=== PATIENT | female | born 1960 | race Caucasian/White ===

== ENCOUNTER 2022-07-02 08:37 | Outpatient (CLI) | payer OTHER ==
[2022-07-02] MEDS ORDERED: Iopamidol 370 76% 100 ML VIAL ONE (10:20)
== END 2022-07-02 08:38 | disposition home or self-care (01) ==
LOC: CT 08:37
PROVIDERS: ATTEND Urology
DX: C64.2 Malignant neoplasm of left kidney, except renal pelvis (principal); N28.89 Other specified disorders of kidney and ureter
CPT/HCPCS: 71260; 74178; 78306; 82565; A9503

== ENCOUNTER 2022-10-23 12:19 | Outpatient (CLI) | payer OTHER ==
[2022-10-23 13:38] LABS: Hematocrit 41.6 % (34.9-44.5); Hemoglobin 13.7 g/dL (12.0-15.5); Mean Corpuscular HGB CONC 32.9 g/dL (32.0-36.0); Mean Corpuscular Hemoglobin 28.5 pg (27.0-33.0); Mean Corpuscular Volume 86.5 fl (81.6-98.3); Mean Platelet Volume 9.7 fl (7.4-10.4); Platelet Count 251 10x3/uL (150-450); RBC Distribution Width 11.9 % (11.5-14.5); Red Blood Cell (RBC) Count 4.81 10x6/uL (3.90-5.03); White Blood Cell (WBC) Count 7.4 10x3/uL (3.5-10.5)
[2022-10-23 13:41] LABS: PTT 26.9 sec (22.0-33.0); Prothrombin Time 10.3 sec (9.5-12.1)
[2022-10-23 13:44] LABS: Anion Gap 15 mmol/L (10-20); BUN (Urea Nitrogen) 14 mg/dL (9.8-20.1); Calc. Creatinine Clearance 0 mL/min (70-130); Calcium 10.1 mg/dL (7.8-10.44); Carbon Dioxide 26 mmol/L (22-29); Chloride 104 mmol/L (98-107); Estimated GFR 84; Glucose 94 mg/dL (70-105); Sodium 141 mmol/L (136-145)
[2022-10-23 13:57] LABS: Bilirubin Neg (Negative); Blood, Urine Negative (Negative); Clarity Clear (Clear); Glucose, Urine (Dipstick) Normal (Negative); Ketone, Urine Negative (Negative); Leukocyte Negative (Negative); Nitrite Negative (Negative); Protein, Urine (Dipstick) Negative (Neg-Trace); Urobilinogen Normal mg/dL (Less than 2)
[2022-10-23 14:12] LABS: RBC/HPF None Seen HPF (0-3); Squamous Epithelial 0-3 HPF (0-3); WBC/HPF None Seen HPF (0-3)
[2022-10-23 14:13] LABS: Bacteria/HPF None Seen HPF (None Seen)
== END 2022-10-23 12:20 | disposition home or self-care (01) ==
LOC: LABBT 12:19
PROVIDERS: ATTEND Urology
DX: Z01.818 Encounter for other preprocedural examination (principal); N28.89 Other specified disorders of kidney and ureter; E66.01 Morbid (severe) obesity due to excess calories; R91.1 Solitary pulmonary nodule; Z68.41 Body mass index [BMI] 40.0-44.9, adult
CPT/HCPCS: 71046; 80048; 81001; 85027; 85610; 85730; 87086; 93005; 93010

== ENCOUNTER 2022-10-23 12:30 | Inpatient (IN) | payer OTHER ==
[2022-11-05] MEDS ORDERED: Fentanyl 250 MCG/5 ML VIAL ONE (06:42)
[2022-11-05] MEDS ORDERED: Midazolam HCl 2 mg/2 ml Vial ONE ×2 (06:43→07:01)
[2022-11-05] MEDS ORDERED: fentaNYL 50 mcg/mL 1 mL Vial ONE ×2 (07:01→09:45)
[2022-11-05] MEDS ORDERED: Bacitracin Zinc Ointment 30 gm TUBE ONE (07:13)
[2022-11-05] MEDS ORDERED: Sodium Chloride 0.9% 100 ML ONE (07:32)
[2022-11-05] MEDS ORDERED: CEFAZOLIN 2 GM VIAL ONE (07:32)
[2022-11-05] MEDS ORDERED: Naloxone HCl 0.4 mg/ml Vial IVP PRN (07:45)
[2022-11-05] MEDS ORDERED: Promethazine HCl 25 MG/ML VIAL IM PRN (07:45)
[2022-11-05] MEDS ORDERED: diphenhydrAMINE 25 MG CAP PO PRN (07:45)
[2022-11-05] MEDS ORDERED: HYDROcodone/Acetaminophen 5/325 mg Tablet PO PRN ×2 (07:45)
[2022-11-05] MEDS ORDERED: Promethazine HCl 25 MG SUPP PR PRN (07:45)
[2022-11-05] MEDS ORDERED: Moisturizing Cream (Eucerin) 113 GM JAR TOP PRN (07:45)
[2022-11-05] MEDS ORDERED: traMADol HCl 50 MG TAB PO PRN ×2 (07:45)
[2022-11-05] MEDS ORDERED: Ondansetron PF 4 MG/2 ML Vial IVP PRN (07:45)
[2022-11-05] MEDS ORDERED: diphenhydrAMINE 50 MG/ML VIAL IM PRN (07:45)
[2022-11-05] MEDS ORDERED: Bupivacaine 0.25% 10 ML VIAL EPIDURAL PRN (07:45)
[2022-11-05] MEDS ORDERED: Naloxone HCl 0.4 mg/ml Vial IV PRN (07:45)
[2022-11-05] MEDS ORDERED: diphenhydrAMINE 50 MG/ML VIAL IVP PRN (07:45)
[2022-11-05] MEDS ORDERED: Labetalol HCl 100 MG/20 ML VIAL ONE (07:48)
[2022-11-05] MEDS ORDERED: Rocuronium Bromide 10 MG/ML (10ML VIAL) ONE (07:48)
[2022-11-05] MEDS ORDERED: PROPOFOL 200 MG/20 ML VIAL ONE (07:48)
[2022-11-05] MEDS ORDERED: Ondansetron PF 4 MG/2 ML Vial ONE (07:48)
[2022-11-05] MEDS ORDERED: Dexamethasone 20 MG/5 ML VIAL ONE (07:48)
[2022-11-05] MEDS ORDERED: Bupivacaine 0.25% HCL 30 ML VIAL ONE (09:45)
[2022-11-05] MEDS ORDERED: Bisacodyl 10 MG SUPP PR PRN (11:28)
[2022-11-05] MEDS ORDERED: Mag-Al 1200 mg/1200 mg/30 ML UDCUP PO PRN (11:28)
[2022-11-05] MEDS ORDERED: Oxybutynin 5 MG TAB PO PRN (11:28)
[2022-11-05] MEDS ORDERED: hydrALAZINE 20 MG/ML VIAL SLOW IVP PRN (11:28)
[2022-11-05] MEDS: Sodium Chloride 0.9% 1,000 ML IV SCH ×2 (12:36→21:24)
[2022-11-05 13:41] LABS: Hematocrit 34.6 % (36.0-47.0); Hemoglobin 11.4 g/dL (12.0-16.0); Mean Corpuscular HGB CONC 32.9 g/dL (32.0-36.0); Mean Corpuscular Hemoglobin 29.2 pg (27.0-31.0); Mean Corpuscular Volume 88.7 fl (78.0-98.0); Mean Platelet Volume 9.8 fL (7.4-10.4); Platelet Count 179 10x3/uL (130-400); RBC Distribution Width 12.5 % (11.5-14.5); White Blood Cell (WBC) Count 11.5 10x3/uL (4.8-10.8)
[2022-11-05 13:48] LABS: Anion Gap 9 mmol/L (10-20); BUN (Urea Nitrogen) 12 mg/dL (9.8-20.1); Calc. Creatinine Clearance 167 mL/min (70-130); Calcium 8.6 mg/dL (7.8-10.44); Carbon Dioxide 23 mmol/L (22-29); Chloride 109 mmol/L (98-107); Estimated GFR 100; Glucose 177 mg/dL (70-105); Potassium 3.7 mmol/L (3.5-5.1); Sodium 137 mmol/L (136-145)
[2022-11-05 14:42] VITALS: BMI 43.0
[2022-11-05] MEDS ORDERED: Electrolyte Replacement Protocol 1 EACH FS SCH (15:45)
[2022-11-05 16:23] LABS: Actual Bicarbonate (HCO3v) 23.2 mEq/L (22-28); Base Excess -2.6 mEq/L (-2.0 to +3.0); Calcium, Ionized (venous) 1.06 mmol/L (1.16-1.32); Chloride (VBG) 105 mmol/L (98-106); Hematocrit-VBG 39 % (36.0-47.0); Hemoglobin (Hb) 13.3 g/dL (11.7-16.0); Potassium (VBG) 3.97 mmol/L (3.70-5.30); Sodium 138.8 mmol/L (133-146); pH (venous) 7.342 (7.32-7.43)
[2022-11-05] MEDS: CEFAZOLIN 1 GM in Sodium Chloride 0.9% 100 ML IVPB SCH (17:29)
[2022-11-05] MEDS: Docusate 100 MG CAP PO SCH (21:20)
[2022-11-06] MEDS: CEFAZOLIN 1 GM in Sodium Chloride 0.9% 100 ML IVPB SCH ×2 (00:35→09:15)
[2022-11-06] MEDS: Fentanyl/Bupivacaine 100 ML EPIDURAL SCH ×2 (03:53→17:50)
[2022-11-06 05:24] LABS: #Monocytes 0.7 thou/uL (0.11-0.59); #Neutrophils 7.4 thou/uL (1.40-6.50); %Basophils 0.1 % (0.0-1.0); %Monocytes 7.9 % (0.0-10.0); %Neutrophils 79.8 % (42.0-75.0); Hematocrit 30.3 % (36.0-47.0); Mean Corpuscular Hemoglobin 29.2 pg (27.0-31.0); Mean Corpuscular Volume 88.3 fl (78.0-98.0); Mean Platelet Volume 9.4 fL (7.4-10.4); Platelet Count 167 10x3/uL (130-400); RBC Distribution Width 12.7 % (11.5-14.5); Red Blood Cell (RBC) Count 3.43 mill/uL (4.20-5.40); White Blood Cell (WBC) Count 9.2 10x3/uL (4.8-10.8)
[2022-11-06 05:53] LABS: Anion Gap 10 mmol/L (10-20); BUN (Urea Nitrogen) 11 mg/dL (9.8-20.1); Calc. Creatinine Clearance 176 mL/min (70-130); Calcium 8.5 mg/dL (7.8-10.44); Carbon Dioxide 25 mmol/L (22-29); Chloride 107 mmol/L (98-107); Estimated GFR 101; Glucose 128 mg/dL (70-105); Potassium 3.6 mmol/L (3.5-5.1); Sodium 138 mmol/L (136-145)
[2022-11-06] MEDS: Docusate 100 MG CAP PO SCH ×2 (09:15→21:13)
[2022-11-07 05:03] LABS: #Eosinphils 0.1 thou/uL (0.0-0.7); #Monocytes 0.7 thou/uL (0.11-0.59); #Neutrophils 7.6 thou/uL (1.40-6.50); %Basophils 0.2 % (0.0-1.0); %Eosinophils 0.5 % (0.0-10.0); %Monocytes 7.2 % (0.0-10.0); %Neutrophils 79.6 % (42.0-75.0); Hematocrit 28.9 % (36.0-47.0); Hemoglobin 9.5 g/dL (12.0-16.0); Mean Corpuscular HGB CONC 32.9 g/dL (32.0-36.0); Mean Corpuscular Hemoglobin 29.5 pg (27.0-31.0); Mean Corpuscular Volume 89.8 fl (78.0-98.0); Mean Platelet Volume 9.8 fL (7.4-10.4); Platelet Count 161 10x3/uL (130-400); RBC Distribution Width 12.8 % (11.5-14.5); Red Blood Cell (RBC) Count 3.22 mill/uL (4.20-5.40); White Blood Cell (WBC) Count 9.6 10x3/uL (4.8-10.8)
[2022-11-07 05:36] LABS: Anion Gap 11 mmol/L (10-20); BUN (Urea Nitrogen) 9 mg/dL (9.8-20.1); Calc. Creatinine Clearance 190 mL/min (70-130); Carbon Dioxide 26 mmol/L (22-29); Chloride 104 mmol/L (98-107); Estimated GFR 102; Glucose 115 mg/dL (70-105); Sodium 137 mmol/L (136-145)
[2022-11-07] MEDS: Fentanyl/Bupivacaine 100 ML EPIDURAL SCH ×2 (08:16→21:27)
[2022-11-07] MEDS: Docusate 100 MG CAP PO SCH ×2 (08:52→21:39)
[2022-11-08 04:06] LABS: #Eosinphils 0.2 thou/uL (0.0-0.7); #Monocytes 0.7 thou/uL (0.11-0.59); %Basophils 0.2 % (0.0-1.0); %Eosinophils 1.5 % (0.0-10.0); %Lymphocytes 11.6 % (21.0-51.0); %Monocytes 6.6 % (0.0-10.0); %Neutrophils 79.5 % (42.0-75.0); Hematocrit 29.4 % (36.0-47.0); Hemoglobin 9.7 g/dL (12.0-16.0); Mean Corpuscular Hemoglobin 29.1 pg (27.0-31.0); Mean Corpuscular Volume 88.3 fl (78.0-98.0); Mean Platelet Volume 9.4 fL (7.4-10.4); Platelet Count 162 10x3/uL (130-400); RBC Distribution Width 12.4 % (11.5-14.5); Red Blood Cell (RBC) Count 3.33 mill/uL (4.20-5.40); White Blood Cell (WBC) Count 10.1 10x3/uL (4.8-10.8)
[2022-11-08 04:31] LABS: Anion Gap 11 mmol/L (10-20); BUN (Urea Nitrogen) 11 mg/dL (9.8-20.1); Calc. Creatinine Clearance 199 mL/min (70-130); Carbon Dioxide 25 mmol/L (22-29); Chloride 104 mmol/L (98-107); Estimated GFR 104; Glucose 116 mg/dL (70-105); Potassium 3.5 mmol/L (3.5-5.1); Sodium 136 mmol/L (136-145)
[2022-11-08] MEDS ORDERED: Potassium Chloride 20 MEQ TAB PO SCH (08:00)
[2022-11-08] MEDS: Docusate 100 MG CAP PO SCH ×2 (08:22→21:17)
[2022-11-08] MEDS: Fentanyl/Bupivacaine 100 ML EPIDURAL SCH (11:41)
[2022-11-09] MEDS: Fentanyl/Bupivacaine 100 ML EPIDURAL SCH (00:22)
[2022-11-09 05:09] LABS: #Eosinphils 0.4 thou/uL (0.0-0.7); #Monocytes 0.7 thou/uL (0.11-0.59); #Neutrophils 5.6 thou/uL (1.40-6.50); %Basophils 0.4 % (0.0-1.0); %Eosinophils 4.5 % (0.0-10.0); %Lymphocytes 18.7 % (21.0-51.0); %Monocytes 8.4 % (0.0-10.0); %Neutrophils 67.3 % (42.0-75.0); Hematocrit 28.7 % (36.0-47.0); Hemoglobin 9.4 g/dL (12.0-16.0); Mean Corpuscular HGB CONC 32.8 g/dL (32.0-36.0); Mean Corpuscular Hemoglobin 28.9 pg (27.0-31.0); Mean Corpuscular Volume 88.3 fl (78.0-98.0); Mean Platelet Volume 9.4 fL (7.4-10.4); Platelet Count 208 10x3/uL (130-400); RBC Distribution Width 12.3 % (11.5-14.5); Red Blood Cell (RBC) Count 3.25 mill/uL (4.20-5.40); White Blood Cell (WBC) Count 8.3 10x3/uL (4.8-10.8)
[2022-11-09 05:32] LABS: Anion Gap 11 mmol/L (10-20); BUN (Urea Nitrogen) 15 mg/dL (9.8-20.1); Calc. Creatinine Clearance 202 mL/min (70-130); Calcium 8.9 mg/dL (7.8-10.44); Carbon Dioxide 29 mmol/L (22-29); Chloride 101 mmol/L (98-107); Estimated GFR 104; Glucose 103 mg/dL (70-105); Potassium 3.5 mmol/L (3.5-5.1); Sodium 137 mmol/L (136-145)
[2022-11-09] MEDS ORDERED: Potassium Chloride 20 MEQ TAB PO SCH (08:00)
[2022-11-09] MEDS: Docusate 100 MG CAP PO SCH ×2 (09:04→19:53)
[2022-11-09] MEDS ORDERED: HYDROcodone/Acetaminophen 10/325 mg Tablet PO PRN (10:58)
[2022-11-09] MEDS: HYDROcodone/Acetaminophen 10/325 mg Tablet PO PRN ×2 (13:27→19:53)
[2022-11-10 06:53] LABS: #Eosinphils 0.3 thou/uL (0.0-0.7); #Monocytes 0.6 thou/uL (0.11-0.59); #Neutrophils 4.7 thou/uL (1.40-6.50); %Basophils 0.4 % (0.0-1.0); %Eosinophils 4.3 % (0.0-10.0); %Lymphocytes 17.9 % (21.0-51.0); %Monocytes 8.7 % (0.0-10.0); %Neutrophils 67.6 % (42.0-75.0); Hematocrit 28.8 % (36.0-47.0); Hemoglobin 9.5 g/dL (12.0-16.0); Mean Corpuscular Hemoglobin 29.3 pg (27.0-31.0); Mean Corpuscular Volume 88.9 fl (78.0-98.0); Mean Platelet Volume 9.6 fL (7.4-10.4); Platelet Count 248 10x3/uL (130-400); RBC Distribution Width 12.1 % (11.5-14.5); Red Blood Cell (RBC) Count 3.24 mill/uL (4.20-5.40)
[2022-11-10 07:38] LABS: Anion Gap 12 mmol/L (10-20); BUN (Urea Nitrogen) 14 mg/dL (9.8-20.1); Calc. Creatinine Clearance 202 mL/min (70-130); Carbon Dioxide 27 mmol/L (22-29); Chloride 103 mmol/L (98-107); Estimated GFR 104; Glucose 109 mg/dL (70-105); Potassium 3.8 mmol/L (3.5-5.1); Sodium 138 mmol/L (136-145)
[2022-11-10] MEDS: Docusate 100 MG CAP PO SCH (09:33)
[2022-11-10 16:59] VITALS: BP 132/84; TEMP 98.7
== END 2022-11-10 17:35 | disposition home or self-care (01) | DRG 657 ==
LOC: SURG A 11-05 05:56 → CCU 11-05 13:19 → SJJU 11-08 15:58
PROVIDERS: ADMIT Urology; ATTEND Urology
PROC: 0TB00ZZ Excision of Right Kidney, Open Approach (ICD-10-PCS; principal; 2022-11-05)
DX: C64.1 Malignant neoplasm of right kidney, except renal pelvis (principal); Z68.41 Body mass index [BMI] 40.0-44.9, adult; N28.89 Other specified disorders of kidney and ureter; E66.01 Morbid (severe) obesity due to excess calories; R91.1 Solitary pulmonary nodule; I10 Essential (primary) hypertension; Z90.710 Acquired absence of both cervix and uterus; Z90.49 Acquired absence of other specified parts of digestive tract; Z88.2 Allergy status to sulfonamides
CPT/HCPCS: 36415; 71045; 80048; 82805; 85025; 85027; 86850; 86900; 86901; 88307; C1713; C1776; C1889; J0690; J1100; J1650; J2250; J2405; J2704; J3010; J3490; J7050; S0020

== ENCOUNTER 2023-03-09 10:00 | Inpatient (IN) | payer OTHER ==
[2023-03-18] MEDS ORDERED: Fentanyl 250 MCG/5 ML VIAL ONE (06:23)
[2023-03-18] MEDS ORDERED: PROPOFOL 20 ML ONE (06:23)
[2023-03-18] MEDS ORDERED: Sodium Chloride 0.9% 100 ML ONE ×2 (06:23→07:35)
[2023-03-18] MEDS ORDERED: Vecuronium 10 MG VIAL ONE (06:24)
[2023-03-18] MEDS ORDERED: fentaNYL 50 mcg/mL 1 mL Vial ONE ×3 (06:57→09:38)
[2023-03-18] MEDS ORDERED: Midazolam HCl 2 mg/2 ml Vial ONE (06:57)
[2023-03-18] MEDS ORDERED: CEFAZOLIN 2 GM VIAL ONE (07:35)
[2023-03-18] MEDS ORDERED: Promethazine HCl 25 MG/ML VIAL IM PRN (08:00)
[2023-03-18] MEDS ORDERED: diphenhydrAMINE 25 MG CAP PO PRN (08:00)
[2023-03-18] MEDS ORDERED: Naloxone HCl 0.4 mg/ml Vial IV PRN (08:00)
[2023-03-18] MEDS ORDERED: Naloxone HCl 0.4 mg/ml Vial IVP PRN (08:00)
[2023-03-18] MEDS ORDERED: diphenhydrAMINE 50 MG/ML VIAL IVP PRN (08:00)
[2023-03-18] MEDS ORDERED: Zolpidem Tartrate 5 MG TAB PO PRN (08:00)
[2023-03-18] MEDS ORDERED: Ondansetron PF 4 MG/2 ML Vial IVP PRN (08:00)
[2023-03-18] MEDS ORDERED: Bupivacaine 0.25% 10 ML VIAL EPIDURAL PRN (08:00)
[2023-03-18] MEDS ORDERED: diphenhydrAMINE 50 MG/ML VIAL IM PRN (08:00)
[2023-03-18] MEDS ORDERED: HYDROcodone/Acetaminophen 5/325 mg Tablet PO PRN (08:00)
[2023-03-18] MEDS ORDERED: Moisturizing Cream (Eucerin) 113 GM JAR TOP PRN (08:00)
[2023-03-18] MEDS ORDERED: traMADol HCl 50 MG TAB PO PRN (08:00)
[2023-03-18] MEDS ORDERED: Promethazine HCl 25 MG SUPP PR PRN (08:00)
[2023-03-18] MEDS ORDERED: Lidocaine 1.5% w/Epi 1:200K 30 ML VIAL (Epid Use) ONE (09:11)
[2023-03-18] MEDS ORDERED: Rocuronium Bromide 10 MG/ML (10ML VIAL) ONE (09:11)
[2023-03-18] MEDS ORDERED: Ondansetron PF 4 MG/2 ML Vial ONE (10:06)
[2023-03-18] MEDS ORDERED: Dexmedetomidine 200 MCG/2 ML VIAL ONE (10:07)
[2023-03-18] MEDS ORDERED: SUGAMMADEX SODIUM 200 MG/2 ML VIAL ONE (10:10)
[2023-03-18] MEDS ORDERED: Mag-Al 1200 mg/1200 mg/30 ML UDCUP PO PRN (11:20)
[2023-03-18] MEDS ORDERED: hydrALAZINE 20 MG/ML VIAL SLOW IVP PRN (11:20)
[2023-03-18] MEDS ORDERED: Bisacodyl 10 MG SUPP PR PRN (11:20)
[2023-03-18] MEDS ORDERED: Sodium Chloride 0.9% 1,000 ML IV SCH (11:20)
[2023-03-18] MEDS: CEFAZOLIN 1 GM in Sodium Chloride 0.9% 100 ML IVPB SCH ×2 (16:04→23:38)
[2023-03-18] MEDS: Docusate 100 MG CAP PO SCH (21:40)
[2023-03-19] MEDS: FENTANYL 500 MCG/10 ML VIAL 500 MCG, Bupivacaine 0.75% 10 ML in Sodium Chloride 0.9% 80 ML EPIDURAL SCH ×2 (04:32→21:26)
[2023-03-19] MEDS: traMADol HCl 50 MG TAB PO PRN (04:47)
[2023-03-19 05:15] LABS: #Eosinphils 0.1 thou/uL (0.0-0.7); #Monocytes 0.5 thou/uL (0.11-0.59); #Neutrophils 5.6 thou/uL (1.40-6.50); %Basophils 0.3 % (0.0-1.0); %Eosinophils 1.9 % (0.0-10.0); %Lymphocytes 13.5 % (21.0-51.0); %Monocytes 6.8 % (0.0-10.0); %Neutrophils 77.2 % (42.0-75.0); Hematocrit 30.4 % (36.0-47.0); Hemoglobin 9.8 g/dL (12.0-16.0); Mean Corpuscular HGB CONC 32.2 g/dL (32.0-36.0); Mean Corpuscular Hemoglobin 27.9 pg (27.0-31.0); Mean Corpuscular Volume 86.6 fl (78.0-98.0); Mean Platelet Volume 9.7 fL (7.4-10.4); Platelet Count 157 10x3/uL (130-400); RBC Distribution Width 13.3 % (11.5-14.5); Red Blood Cell (RBC) Count 3.51 mill/uL (4.20-5.40); White Blood Cell (WBC) Count 7.2 10x3/uL (4.8-10.8)
[2023-03-19 05:37] LABS: Anion Gap 10 mmol/L (10-20); BUN (Urea Nitrogen) 12 mg/dL (9.8-20.1); Calc. Creatinine Clearance 124 mL/min (70-130); Calcium 8.1 mg/dL (7.8-10.44); Carbon Dioxide 23 mmol/L (23-31); Chloride 108 mmol/L (98-107); Estimated GFR 74; Glucose 125 mg/dL (80-115); Potassium 3.8 mmol/L (3.5-5.1); Sodium 137 mmol/L (136-145)
[2023-03-19] MEDS: Docusate 100 MG CAP PO SCH ×2 (08:30→20:23)
[2023-03-19] MEDS: CEFAZOLIN 1 GM in Sodium Chloride 0.9% 100 ML IVPB SCH (08:30)
[2023-03-19] MEDS ORDERED: CEFAZOLIN 1 GM in Sodium Chloride 0.9% 100 ML IVPB SCH (16:00)
[2023-03-20 07:56] LABS: Anion Gap 13 mmol/L (10-20); BUN (Urea Nitrogen) 10 mg/dL (9.8-20.1); Calc. Creatinine Clearance 137 mL/min (70-130); Calcium 8.2 mg/dL (7.8-10.44); Carbon Dioxide 19 mmol/L (23-31); Chloride 104 mmol/L (98-107); Estimated GFR 80; Glucose 105 mg/dL (80-115); Potassium 4.1 mmol/L (3.5-5.1); Sodium 132 mmol/L (136-145)
[2023-03-20] MEDS: Docusate 100 MG CAP PO SCH ×2 (08:10→20:17)
[2023-03-20 08:19] LABS: #Eosinphils 0.2 thou/uL (0.0-0.7); #Monocytes 0.5 thou/uL (0.11-0.59); #Neutrophils 7.6 thou/uL (1.40-6.50); %Basophils 0.1 % (0.0-1.0); %Eosinophils 2.4 % (0.0-10.0); %Lymphocytes 12.9 % (21.0-51.0); %Monocytes 5.4 % (0.0-10.0); %Neutrophils 77.7 % (42.0-75.0); Hemoglobin 11.2 g/dL (12.0-16.0); Mean Corpuscular HGB CONC 32.9 g/dL (32.0-36.0); Mean Corpuscular Hemoglobin 28.2 pg (27.0-31.0); Mean Corpuscular Volume 85.6 fl (78.0-98.0); Mean Platelet Volume 9.8 fL (7.4-10.4); Platelet Count 176 10x3/uL (130-400); RBC Distribution Width 12.9 % (11.5-14.5); Red Blood Cell (RBC) Count 3.97 mill/uL (4.20-5.40); White Blood Cell (WBC) Count 9.8 10x3/uL (4.8-10.8)
[2023-03-20] MEDS: FENTANYL 500 MCG/10 ML VIAL 500 MCG, Bupivacaine 0.75% 10 ML in Sodium Chloride 0.9% 80 ML EPIDURAL SCH (14:11)
[2023-03-21 04:21] LABS: #Eosinphils 0.3 thou/uL (0.0-0.7); #Monocytes 0.6 thou/uL (0.11-0.59); #Neutrophils 6.9 thou/uL (1.40-6.50); %Basophils 0.1 % (0.0-1.0); %Eosinophils 2.8 % (0.0-10.0); %Lymphocytes 11.9 % (21.0-51.0); %Monocytes 7.1 % (0.0-10.0); %Neutrophils 77.8 % (42.0-75.0); Hematocrit 30.9 % (36.0-47.0); Hemoglobin 9.9 g/dL (12.0-16.0); Mean Corpuscular Hemoglobin 27.2 pg (27.0-31.0); Mean Corpuscular Volume 84.9 fl (78.0-98.0); Mean Platelet Volume 9.9 fL (7.4-10.4); Platelet Count 183 10x3/uL (130-400); RBC Distribution Width 12.9 % (11.5-14.5); Red Blood Cell (RBC) Count 3.64 mill/uL (4.20-5.40); White Blood Cell (WBC) Count 8.9 10x3/uL (4.8-10.8)
[2023-03-21 04:32] VITALS: BMI 42.8
[2023-03-21 04:34] LABS: Anion Gap 15 mmol/L (10-20); BUN (Urea Nitrogen) 10 mg/dL (9.8-20.1); Calc. Creatinine Clearance 141 mL/min (70-130); Calcium 8.7 mg/dL (7.8-10.44); Carbon Dioxide 22 mmol/L (23-31); Chloride 103 mmol/L (98-107); Estimated GFR 84; Glucose 108 mg/dL (80-115); Potassium 3.7 mmol/L (3.5-5.1); Sodium 136 mmol/L (136-145)
[2023-03-21] MEDS: FENTANYL 500 MCG/10 ML VIAL 500 MCG, Bupivacaine 0.75% 10 ML in Sodium Chloride 0.9% 80 ML EPIDURAL SCH (06:59)
[2023-03-21] MEDS: Docusate 100 MG CAP PO SCH ×2 (09:42→19:53)
[2023-03-21] MEDS: traMADol HCl 50 MG TAB PO PRN (19:54)
[2023-03-21] MEDS: HYDROcodone/Acetaminophen 5/325 mg Tablet PO PRN (23:40)
[2023-03-22 04:40] LABS: #Eosinphils 0.3 thou/uL (0.0-0.7); #Monocytes 0.5 thou/uL (0.11-0.59); #Neutrophils 4.7 thou/uL (1.40-6.50); %Basophils 0.1 % (0.0-1.0); %Lymphocytes 21.5 % (21.0-51.0); %Monocytes 7.6 % (0.0-10.0); %Neutrophils 66.2 % (42.0-75.0); Hematocrit 28.9 % (36.0-47.0); Hemoglobin 9.6 g/dL (12.0-16.0); Mean Corpuscular HGB CONC 33.2 g/dL (32.0-36.0); Mean Corpuscular Hemoglobin 28.3 pg (27.0-31.0); Mean Corpuscular Volume 85.3 fl (78.0-98.0); Mean Platelet Volume 10.1 fL (7.4-10.4); Platelet Count 222 10x3/uL (130-400); RBC Distribution Width 12.9 % (11.5-14.5); Red Blood Cell (RBC) Count 3.39 mill/uL (4.20-5.40); White Blood Cell (WBC) Count 7.1 10x3/uL (4.8-10.8)
[2023-03-22 04:56] LABS: Anion Gap 10 mmol/L (10-20); BUN (Urea Nitrogen) 14 mg/dL (9.8-20.1); Calc. Creatinine Clearance 143 mL/min (70-130); Calcium 8.9 mg/dL (7.8-10.44); Carbon Dioxide 27 mmol/L (23-31); Chloride 101 mmol/L (98-107); Estimated GFR 85; Glucose 99 mg/dL (80-115); Potassium 3.6 mmol/L (3.5-5.1); Sodium 134 mmol/L (136-145)
[2023-03-22] MEDS: HYDROcodone/Acetaminophen 5/325 mg Tablet PO PRN (05:04)
[2023-03-22 08:03] VITALS: TEMP 97.8
[2023-03-22] MEDS ORDERED: Enoxaparin 40 MG (0.4 mL) SYRINGE SC SCH (09:00)
[2023-03-22] MEDS: Docusate 100 MG CAP PO SCH (09:02)
[2023-03-22 11:47] VITALS: BP 110/74
== END 2023-03-22 12:52 | disposition home or self-care (01) | DRG 657 ==
LOC: SURG A 03-18 05:49 → CCU 03-18 12:54 → SURG A 03-21 18:36
PROVIDERS: ADMIT Urology; ATTEND Urology
PROC: 0TT10ZZ Resection of Left Kidney, Open Approach (ICD-10-PCS; principal; 2023-03-18)
DX: C64.2 Malignant neoplasm of left kidney, except renal pelvis (principal); Z68.41 Body mass index [BMI] 40.0-44.9, adult; E66.9 Obesity, unspecified; Z88.2 Allergy status to sulfonamides; I10 Essential (primary) hypertension
CPT/HCPCS: 36415; 80048; 85025; 86850; 86900; 86901; 88307; A4314; A4649; C1713; C1776; C1889; J0690; J1650; J2001; J2250; J2405; J2704; J3010; J3490